=== PATIENT | male | born 1935 | race Caucasian/White ===

== ENCOUNTER 2019-11-09 04:53 | Inpatient (IN) | payer MEDICARE, BC ==
[~2019-11-09] VITALS: Ht 172.7 cm; Wt 62.5 kg
--- NOTE | 2019-11-09 05:13 | NUR ---
83Y M BIB EMS FROM [facility] FOR BOWEL OBSTRUCTION. PT HAS HAD WORSENING ABD PAIN AND DISTENTION SINCE SUNDAY. PER FAMILY PT LAST BM WAS . PT CONECTED TO MONITORING NATALIESLUIS.
--- NOTE | 2019-11-09 05:21 | NUR ---
PA AT BEDSIDE
--- NOTE | 2019-11-09 05:35 | NUR ---
PT RESTING ON [facility] [place] AT BEDSIDE. LUIS
--- NOTE | 2019-11-09 05:58 | NUR ---
AT BEDSIDE TO DISCUSS POC.
--- NOTE | 2019-11-09 06:10 | NUR ---
MED REQ SENT TO PHARMACY
[2019-11-09] MEDS ORDERED: PINK LADY ENEMA 490 ML BOTTLE PR ONE (06:30)
--- NOTE | 2019-11-09 07:10 | NUR ---
fleets enema done, pt unable to go yet
--- NOTE | 2019-11-09 08:10 | NUR ---
pt resting in [facility], states he is still tyring to hold fleets enema in. pt encouraged to get up to commode. family at bedside, 2rn's who are primary cargivers, requesting to assist pt to commode.
--- NOTE | 2019-11-09 08:45 | NUR ---
called to bedside by family to request manual disimpaction, "we need to go home, she hasn't slept, so we need to get this going". md notified. md to bedside and shortly after pt able to produce large stool. per md cancel disimpaction with sedation and [facility]
[2019-11-09] MEDS ORDERED: PROMETHAZINE 25 MG/ML, 1ML IM PRN (09:00)
[2019-11-09] MEDS ORDERED: LABETALOL 5MG/ML, 20ML IVPush PRN (09:00)
[2019-11-09] MEDS ORDERED: ONDANSETRON 2MG/ML, 2ML IVPush PRN (09:00)
--- NOTE | 2019-11-09 09:25 | NUR ---
report to Kendal maxwell
[2019-11-09 09:45] VITALS: BP 156/68
[2019-11-09] MEDS: HEPARIN 5,000 UNITS/ML, 1ML SQ SCH ×2 (09:49→16:28)
[2019-11-09] MEDS: SODIUM CHLORIDE 0.9% 1,000 ML IV SCH (09:49)
[2019-11-09 13:30] VITALS: BP 128/68
[2019-11-09 19:31] VITALS: BP 150/73
[2019-11-09 23:32] VITALS: BP 136/63
[2019-11-09] MEDS: morphine SULFATE 10 MG/ML, 1ML IVPush PRN (23:40)
[2019-11-10] MEDS: HEPARIN 5,000 UNITS/ML, 1ML SQ SCH ×3 (00:01→16:44)
[2019-11-10 00:21] VITALS: BP 133/55
[2019-11-10] MEDS ORDERED: BUPR150T73 PO (00:31)
[2019-11-10] MEDS ORDERED: FAMO-79 PO (00:31)
[2019-11-10] MEDS ORDERED: ARIP5TAB56 PO (00:31)
[2019-11-10] MEDS ORDERED: FINA5TAB4 PO (00:31)
[2019-11-10 05:43] LABS: BASOPHILS # (AUTO) 0.05 x10^3/uL (0-0.1); BASOPHILS % (AUTO) 0 % (0-1); EOSINOPHILS # (AUTO) 0.08 x10^3/uL (0-0.4); EOSINOPHILS % (AUTO) 1 % (1-7); LYMPHOCYTES # (AUTO) 1.89 x10^3/uL (1-3.4); LYMPHOCYTES % (AUTO) 13 % (22-44); MD NO; MEAN CORPUSCULAR HEMOGLOBIN 26.8 pg (27.5-34.5); MEAN CORPUSCULAR HGB CONC 32.7 g/dL (33.2-36.2); MEAN CORPUSCULAR VOLUME 82.1 fL (81-97); MEAN PLATELET VOLUME 7.8 fL (7.4-10.4); MONOCYTES # (AUTO) 1.25 x10^3/uL (0.2-0.8); MONOCYTES % (AUTO) 9 % (2-9); NEUTROPHILS # (AUTO) 11.27 x10^3/uL (1.8-6.8); NEUTROPHILS % (AUTO) 78 % (42-75); PLATELET COUNT 435 x10^3/uL (130-400); RED BLOOD COUNT 4.89 x10^6/uL (4.38-5.82); RED CELL DISTRIBUTION WIDTH 20.4 % (9.4-14.8)
[2019-11-10 05:44] LABS: CHLORIDE 107 mmol/L (98-107)
[2019-11-10 06:00] LABS: ALANINE AMINOTRANSFERASE 30 U/L (12-78); ALBUMIN 2.2 g/dL (3.4-5.0); ALKALINE PHOSPHATASE 77 U/L (45-117); ANION GAP 7 mmol/L (5-15); BILIRUBIN,TOTAL 0.8 mg/dL (0.2-1.0); CALCIUM 8.1 mg/dL (8.5-10.1); CREATININE 0.67 mg/dL (0.7-1.3); TOTAL PROTEIN 5.8 g/dL (6.4-8.2)
[2019-11-10 07:03] VITALS: BP 157/69
[2019-11-10] MEDS: SODIUM CHLORIDE 0.9% 1,000 ML IV SCH ×3 (08:11→16:45)
[2019-11-10 12:20] VITALS: BP 132/65
[2019-11-10] MEDS: morphine SULFATE 10 MG/ML, 1ML IVPush PRN (20:25)
[2019-11-10 20:28] VITALS: BP 152/67
[2019-11-11 00:41] VITALS: BP 125/62
[2019-11-11] MEDS: HEPARIN 5,000 UNITS/ML, 1ML SQ SCH ×3 (00:44→17:20)
[2019-11-11] MEDS: SODIUM CHLORIDE 0.9% 1,000 ML IV SCH ×3 (00:44→15:39)
[2019-11-11] MEDS: morphine SULFATE 10 MG/ML, 1ML IVPush PRN (03:26)
[2019-11-11 06:02] LABS: BASOPHILS # (AUTO) 0.05 x10^3/uL (0-0.1); BASOPHILS % (AUTO) 0 % (0-1); EOSINOPHILS # (AUTO) 0.17 x10^3/uL (0-0.4); EOSINOPHILS % (AUTO) 2 % (1-7); LYMPHOCYTES # (AUTO) 1.71 x10^3/uL (1-3.4); LYMPHOCYTES % (AUTO) 16 % (22-44); MD NO; MEAN CORPUSCULAR HEMOGLOBIN 26.4 pg (27.5-34.5); MEAN CORPUSCULAR HGB CONC 32.5 g/dL (33.2-36.2); MEAN CORPUSCULAR VOLUME 81.3 fL (81-97); MEAN PLATELET VOLUME 7.8 fL (7.4-10.4); MONOCYTES # (AUTO) 1.13 x10^3/uL (0.2-0.8); MONOCYTES % (AUTO) 10 % (2-9); NEUTROPHILS # (AUTO) 7.89 x10^3/uL (1.8-6.8); NEUTROPHILS % (AUTO) 72 % (42-75); PLATELET COUNT 449 x10^3/uL (130-400); RED BLOOD COUNT 4.85 x10^6/uL (4.38-5.82); RED CELL DISTRIBUTION WIDTH 20.2 % (9.4-14.8)
[2019-11-11 06:12] LABS: ALANINE AMINOTRANSFERASE 28 U/L (12-78); ALBUMIN 2.3 g/dL (3.4-5.0); ANION GAP 7 mmol/L (5-15); CALCIUM 8.3 mg/dL (8.5-10.1); CHLORIDE 108 mmol/L (98-107); CREATININE 0.69 mg/dL (0.7-1.3)
[2019-11-11 06:14] LABS: ALKALINE PHOSPHATASE 81 U/L (45-117); BILIRUBIN,TOTAL 0.7 mg/dL (0.2-1.0); TOTAL PROTEIN 5.8 g/dL (6.4-8.2)
[2019-11-11 08:43] VITALS: BP 194/89
[2019-11-11] MEDS: hydrALAzine 20 MG/ML, 1ML IVPush PRN (08:58)
[2019-11-11 09:45] VITALS: BP 145/64
[2019-11-11] MEDS ORDERED: POLYETHYLENE GLYCOL 17 GM PACKET NG ONE (11:30)
[2019-11-11 12:35] VITALS: BP 156/73
[2019-11-11] MEDS: ACETAMINOPHEN 325 MG TABLET PO PRN (15:31)
[2019-11-11 21:12] VITALS: BP 154/71
[2019-11-12 00:06] VITALS: BP 122/55
[2019-11-12] MEDS: SODIUM CHLORIDE 0.9% 1,000 ML IV SCH ×3 (00:21→21:12)
[2019-11-12] MEDS: ACETAMINOPHEN 325 MG TABLET PO PRN ×5 (00:22→21:12)
[2019-11-12] MEDS: HEPARIN 5,000 UNITS/ML, 1ML SQ SCH ×3 (00:22→17:00)
[2019-11-12 05:57] LABS: BASOPHILS # (AUTO) 0.03 x10^3/uL (0-0.1); BASOPHILS % (AUTO) 0 % (0-1); EOSINOPHILS # (AUTO) 0.17 x10^3/uL (0-0.4); EOSINOPHILS % (AUTO) 1 % (1-7); LYMPHOCYTES # (AUTO) 1.87 x10^3/uL (1-3.4); LYMPHOCYTES % (AUTO) 16 % (22-44); MD NO; MEAN CORPUSCULAR HEMOGLOBIN 26.7 pg (27.5-34.5); MEAN CORPUSCULAR HGB CONC 32.6 g/dL (33.2-36.2); MEAN CORPUSCULAR VOLUME 81.9 fL (81-97); MEAN PLATELET VOLUME 7.5 fL (7.4-10.4); MONOCYTES # (AUTO) 1.04 x10^3/uL (0.2-0.8); MONOCYTES % (AUTO) 9 % (2-9); NEUTROPHILS # (AUTO) 8.93 x10^3/uL (1.8-6.8); NEUTROPHILS % (AUTO) 74 % (42-75); PLATELET COUNT 401 x10^3/uL (130-400); RED BLOOD COUNT 4.73 x10^6/uL (4.38-5.82); RED CELL DISTRIBUTION WIDTH 19.9 % (9.4-14.8)
[2019-11-12 06:23] LABS: ALBUMIN 2.3 g/dL (3.4-5.0); ANION GAP 5 mmol/L (5-15); CALCIUM 8.1 mg/dL (8.5-10.1); CHLORIDE 108 mmol/L (98-107)
[2019-11-12 06:27] LABS: ALANINE AMINOTRANSFERASE 29 U/L (12-78); ALKALINE PHOSPHATASE 81 U/L (45-117); BILIRUBIN,TOTAL 0.6 mg/dL (0.2-1.0); CREATININE 0.63 mg/dL (0.7-1.3); TOTAL PROTEIN 5.6 g/dL (6.4-8.2)
[2019-11-12 07:09] VITALS: BP 192/65
[2019-11-12] MEDS ORDERED: OXYcodone/APAP 5/325MG TABLET PO PRN (07:30)
[2019-11-12] MEDS: hydrALAzine 20 MG/ML, 1ML IVPush PRN (09:40)
[2019-11-12 12:30] VITALS: BP 136/69
[2019-11-12 18:49] VITALS: BP 125/66
[2019-11-13 00:56] VITALS: BP 157/69
[2019-11-13] MEDS: HEPARIN 5,000 UNITS/ML, 1ML SQ SCH ×2 (01:15→08:16)
[2019-11-13] MEDS: ACETAMINOPHEN 325 MG TABLET PO PRN ×3 (01:19→13:56)
[2019-11-13] MEDS ORDERED: AMLO10TA8 PO (07:42)
[2019-11-13] MEDS ORDERED: ACET325T26 PO (07:42)
[2019-11-13 08:08] VITALS: BP 145/66
[2019-11-13] MEDS ORDERED: AMLODIPINE 5 MG TABLET PO SCH (09:00)
[2019-11-13] MEDS: SODIUM CHLORIDE 0.9% 1,000 ML IV SCH (11:40)
[2019-11-13 12:10] VITALS: BP 118/65
== END 2019-11-13 14:00 | DRG 388 ==
LOC: ED 05:15 → EDIP 08:33 → 3N 09:24
PROVIDERS: ADMIT Internal Medicine; ATTEND Internal Medicine
DX: K56.41 Fecal impaction (principal); E43 Unspecified severe protein-calorie malnutrition; E87.1 Hypo-osmolality and hyponatremia; K59.39 Other megacolon; Z88.2 Allergy status to sulfonamides; Z68.21 Body mass index [BMI] 21.0-21.9, adult; D72.829 Elevated white blood cell count, unspecified; E86.1 Hypovolemia; F02.80 Dementia in other diseases classified elsewhere, unspecified severity, without behavioral disturbance, psychotic disturbance, mood disturbance, and anxiety; G30.9 Alzheimer's disease, unspecified; I10 Essential (primary) hypertension; N40.0 Benign prostatic hyperplasia without lower urinary tract symptoms; Z66 Do not resuscitate
CPT/HCPCS: 36415; 74018; 74021; 74270; 80053; 83735; 84100; 84443; 85025; 99285; G0378; J1644; J0360; J2270; J7030